=== PATIENT | female | born 1965 | race Caucasian/White ===

== ENCOUNTER 2018-11-20 14:07 | Emergency (ER) | payer BC ==
--- NOTE | 2018-11-20 14:42 | ED ---
Syncope/Near Syncope - HPI Summary HPI Summary: This patient is a 53 year old female brought in by EMS presenting to [facility] with a chief complaint of effects after eating a cookie. Patient states that she found a cookie wrapped in a plastic baggy in her home. Patient states that she likes sugar and so she ate the cookie cause there was no mold on it. She states that 15-20 minutes after eating the cookie she started to feel weird( hallucinations, lightheadedness, possible syncope). Patient denies syncope Hx. - History Of Current Complaint Chief Complaint: EDGeneral Time Seen by Provider: 11/20/18 14:30 Hx Obtained From: Patient Associated Signs And Symptoms: Lightheadedness PMH/Surg Hx/FS Hx/Imm Hx Endocrine/Hematology History: Denies: Hx Diabetes Cardiovascular History: Denies: Hx Coronary Artery Disease Infectious Disease History: No Infectious Disease History: Denies: Traveled Outside the [place] in Last 30 Days - Family History Known Family History: Positive: Non-Contributory Negative: Cardiac Disease - Social History Alcohol Use: None Hx Substance Use: No Hx Tobacco Use: No Smoking Status (MU): Never Smoked Tobacco Review of Systems Neurological: Other - Lightheadedness Positive: Syncope Positive: Other - Hallucinations All Other Systems Reviewed And Are Negative: Yes Physical Exam - Summary Physical Exam Summary: Appearance: The patient is well-nourished in no acute distress and in no acute pain. Skin: The skin is warm and dry and skin color reflects adequate perfusion. HEENT: The head is normocephalic and atraumatic. The pupils are equal and reactive. The conjunctivae are clear and without drainage. Nares are patent and without drainage. Mouth reveals moist mucous membranes and the throat is without erythema and exudate. The external ears are intact. The ear canals are patent and without drainage. The tympanic membranes are intact. Neck: The neck is supple with full range of motion and non-tender. There are no carotid bruits. There is no neck vein distension. Respiratory: Chest is non-tender. Lungs are clear to auscultation and breath sounds are symmetrical and equal. Cardiovascular: Heart is regular rate and rhythm. There is no murmur or rub auscultated. There is no peripheral edema and pulses are symmetrical and equal. Abdomen: The abdomen is soft and non-tender. There are normal bowel sounds heard in all four quadrants and there is no organomegaly palpated. Musculoskeletal: There is no back tenderness noted. Extremities are non-tender with full range of motion. There is good capillary refill. There is no peripheral edema or calf tenderness elicited. Neurological: Patient is alert and oriented to person, place and time. The patient has symmetrical motor strength in all four extremities. Cranial nerves are grossly intact. Deep tendon reflexes are symmetrical and equal in all four extremities. Psychiatric: The patient has an appropriate affect and does not exhibit any anxiety or depression. Triage Information Reviewed: Yes Vital Signs On Initial Exam: Initial Vitals Temp Pulse Resp BP Pulse Ox 98.4 F 86 16 130/65 100 11/20/18 14:22 11/20/18 14:22 11/20/18 14:22 11/20/18 14:22 11/20/18 14:22 Vital Signs Reviewed: Yes Diagnostics - Vital Signs Vital Signs Temp Pulse Resp BP Pulse Ox 11/20/18 14:22 98.4 F 86 16 130/65 100 - Laboratory Lab Statement: Any lab studies that have been ordered have been reviewed, and results considered in the medical decision making process. Re-Evaluation - Re-Evaluation First Eval Re-Evaluation Time: 15:43 Change: Improved Comment: Patient called the scowman of the cookie whos stated it had THC in it. Patient is now happy to know the cause of her symptoms. Course/Dx Course Of Treatment: Ms. Adair ate a cookie that she had obtained from a friend' s house. About a half an hour later she began to feel very strange with a cornucopia of symptoms. She was nontoxic in appearance with stable vitals and an normal physical exam. She was observed here and did call her friends who stated that this was a cookie with THC. She was quite relieved and comfortable going home knowing what was going on. She's never had THC before. - Diagnoses Provider Diagnoses: Accidental ingestion of substance, Marijuana intoxication Discharge - Sign-Out/Discharge Documenting (check all that apply): Patient Departure - Discharge Patient Received Moderate/Deep Sedation with Procedure: No - Discharge Plan Condition: Stable Disposition: HOME Patient Education Materials: Acute Delirium (ED) Referrals: Austin Ji DO [Primary Care Provider] - Additional Instructions: Return to ED with any new or worsening symptoms. - Billing Disposition and Condition Condition: STABLE Disposition: Home - Attestation Statements Document Initiated by Scribe: Yes Documenting Scribe: Omar Weber Provider For Whom Lucyibtasia is Documenting (Include Credential): Nilay Porter MD Scribe Attestation: I, Omar Weber, scribed for Nilay Porter MD on 11/20/18 at 2132. Scribe Documentation Reviewed: Yes Provider Attestation: The documentation as recorded by the lucyibeOmar accurately reflects the service I personally performed and the decisions made by me, Nilay Porter MD Status of Scribe Document: Viewed
[2018-11-20 15:52] VITALS: BP 118/69
== END 2018-11-20 15:59 | disposition home or self-care (01) ==
LOC: ED 14:07
DX: T40.7X1A Poisoning by cannabis (derivatives), accidental (unintentional), initial encounter (principal); R42 Dizziness and giddiness; Y92.009 Unspecified place in unspecified non-institutional (private) residence as the place of occurrence of the external cause; F12.929 Cannabis use, unspecified with intoxication, unspecified
CPT/HCPCS: 99282